=== PATIENT | female | born 1960 | race Caucasian/White ===

== ENCOUNTER 2022-09-03 14:36 | Outpatient (CLI) | payer MEDICAID, SELFPAY ==
[2022-09-03 10:17] LABS: Albumin* 4.2 g/dL (3.3-5.0); Chloride* 102 mmol/L (96-114); Sodium* 139 mmol/L (135-149)
[2022-09-03 10:18] LABS: Potassium* 4.3 mmol/L (3.6-5.1)
[2022-09-03 10:20] LABS: Cholesterol* 246 mg/dL (90-199)
[2022-09-03 11:03] LABS: Alanine Aminotransferase* 23 U/L (4-35); Alkaline Phosphatase* 69 U/L (40-150); Aspartate Amino Transferase* 32 U/L (12-35); Bilirubin Total* 0.6 mg/dL (0.1-1.5); Blood Urea Nitrogen* 19 mg/dL (7-30); Calcium* 9.3 mg/dL (8.4-10.6); Carbon Dioxide* 27 mmol/L (20-32); Creatinine* 0.7 mg/dL (0.5-1.5); Estimated Glomerular Filt Rate 97 ml/min; Glucose* 70 mg/dL (60-115); HDL Cholesterol* 77 mg/dL (>=50); LDL Cholesterol Calculated 146 mg/dL (<100); Total Protein* 7.2 g/dL (6.0-8.3); Triglycerides* 117 mg/dL (40-149)
== END 2022-09-03 14:37 | disposition home or self-care (01) ==
PROVIDERS: PCP Family Medicine; Visit Provider Family Medicine
DX: Z01.419 Encounter for gynecological examination (general) (routine) without abnormal findings (principal); E78.5 Hyperlipidemia, unspecified; F41.9 Anxiety disorder, unspecified
CPT/HCPCS: 80053; 80061

== ENCOUNTER 2022-12-01 10:02 | Outpatient (CLI) | payer MEDICAID, SELFPAY ==
--- NOTE | 2022-12-01 10:15 | CRLHL7_ITS ---
For Patients: As a result of the Century Cures Act, medical imaging exams and procedure reports are released immediately into your electronic medical record. You may view this report before your referring provider. If you have questions, please contact your health care provider. BILATERAL SCREENING MAMMOGRAM WITH COMPUTER-AIDED DETECTION TECHNIQUE: CC and MLO views were obtained. These mammographic images have been obtained using full-field digital technique. These mammographic images were interpreted with the benefit of computer-aided detection. COMPARISON FILM: 12/02/21, 09/05/20, 07/29/19. FINDINGS: The breasts are heterogeneously dense, which may obscure small masses IMPRESSION: There is no radiographic evidence for malignancy. ASSESSMENT: BI-RADS Category 1: Negative RECOMMENDATION: Routine screening mammogram in 1 year. A lay language report of this examination will be provided to the patient. Amandeep Palacios M.D. Diagnostic Radiologist [email or web address] SUSU/Dictated by: Amandeep Palacios MD @ 12/02/2022 9:24:00 AM (Electronically Signed)
== END 2022-12-01 10:03 | disposition home or self-care (01) ==
PROVIDERS: PCP Family Medicine; Visit Provider Family Medicine
DX: Z12.31 Encounter for screening mammogram for malignant neoplasm of breast (principal); R92.2 Inconclusive mammogram
CPT/HCPCS: 77067

== ENCOUNTER 2023-12-07 08:10 | Outpatient (CLI) | payer MEDICARE, SELFPAY ==
--- NOTE | 2023-12-07 08:15 | CRLHL7_ITS ---
For Patients: As a result of the Century Cures Act, medical imaging exams and procedure reports are released immediately into your electronic medical record. You may view this report before your referring provider. If you have questions, please contact your health care provider. BILATERAL SCREENING MAMMOGRAM WITH COMPUTER-AIDED DETECTION AND TOMOSYNTHESIS TECHNIQUE: CC and MLO views were obtained. These mammographic images have been obtained using full-field digital technique. These mammographic images were interpreted with the benefit of computer-aided detection. Breast Tomosynthesis was used in this interpretation. COMPARISON FILM: 12/01/22, 12/02/21, 09/05/20. FINDINGS: The breasts are heterogeneously dense, which may obscure small masses IMPRESSION: There is no radiographic evidence for malignancy. ASSESSMENT: BI-RADS Category 1: Negative RECOMMENDATION: Routine screening mammogram in 1 year. A lay language report of this examination will be provided to the patient. Amandeep Palacios M.D. Diagnostic Radiologist [email or web address] SUSU/Dictated by: Amandeep Palacios MD @ 12/08/2023 9:57:00 AM (Electronically Signed)
--- OUTSIDE RECORDS SUMMARY | 2023-12-07 08:15 | XMS_ITS | Encounter Summary ---
Author Name Unknown Organization [facility] Address [address] [place] [address] Care Team Providers Care Commercial Census Taker Name Role Phone Unavailable Primary Care Provider Unavailabl e Reason for Visit * Reason Comments Office Visit: Converted Data Conversion Encounter Details Date Type Department Care Team (Late st Contact Info) Description 05/28/2021 Dental Interim Note [address] [address] [facility] Social History Tobacco Use Types Packs/Day Years Used Date Smoking Tobacco: Never Assessed Social Connections Answer Date Recorded Social Connections and Isolation 0 06/01/2021 Financial Resource Strain Answer Date R ecorded Financial Resource Strain 0 2020 Stress Answer Date Recorded Stress 0 06/01/2021 Physical Activity Answer Date Recorded Physical Activity 0 06/01/2021 Food Insecurity Answer Date Recorded Food 0 06/01/2021 Transportation Needs Answer Date Record ed Transportation 0 06/01/2021 Housing Stability Answer Date Recorded Housing 0 06/01/2021 Safety and Environment Answer Date Justus rded Safety 0 06/01/2021 Utilities Answer Date Recorded Utilities 0 06/01/2021 Employment Answer Date Recorded Employment 0 06/01/2021 Sex and Gender Information Value Date Recorded Sex Assigned at Not on file Gender Identity Female 05/25/2018 6:02 AM PDT Sexual Orientation Straight 05/25/2018 6: 02 AM PDT documented as of this encounter Plan of Treatment Not on file documented as of this encounter Visit Diagnoses Not on filedocumented in this encounter
--- OUTSIDE RECORDS SUMMARY | 2023-12-07 08:15 | XMS_ITS | Clinical Summary ---
Author Name Unknown Organization [facility] Address [place], [place] [address] Care Team Providers Care Steel Wool Machine Operator Name Role Phone Marj Joe DO Primary Care Provider Allergies Active Allergy Reactions Criticality Noted Date Comments Cat Dander Itching 11/20/2021 Ciprofloxacin Dyspnea,Rash High 07/08/2019 Dog Dander Itching 11/20/2021 Mold Itching 11/20/2021 Sulfa (Sulfonamide Antibiotics) Rash 04/2019 Medications Medication Sig Dispensed Refills Start Date End Date Status Iron 18 mg tablet Take by mouth. 0 Act elizabeth escitalopram oxalate (LEXAPRO) 10 mg tabletIndications:Gen eralized anxiety disorder TAKE ONE TABLET BY MOUTH DAILY 90 Tablet 4 09/29/2023 Active Active Problems Problem Noted Date Diagnosed Date Sebaceous cyst 12/02/2010 Venous insufficiency of leg 11/05/2010 Lipoma 11/05/2010 Encounters Date Type Department Care Team Description 10/09/2023 2:10 PM CHIEF OPERATIONS OFFICER Office Visit [facility] [address] [place] [address] Sir Joei Emiliana, Anxiety (Discuss Lexapro/anxiety - stable for 6 years ); Sleep Problem (Pt reports waking up 2-4am and has trouble falling back asleep) 10/09/2023 Travel 10/02/2023 Telephone [facility] [address] [place] [address] Marj Joe DO Results (lab) 09/29/2023 7:40 AM CHIEF OPERATIONS OFFICER Office [facility] [address] [facility] [address] Tatynaa Marj Emiliana, DO Medicare WELCOME Visit (63 year old female); Back Pain (R mid pain - not sure if this is internal - worse in the morning, present when taking deep breath); Depression (Pt struggling with depression/anxiety) 09/29/2023 Orders Only [facility] Scanner 1 scan: (1-Ord) INCOMING RECORDS-[facility], 09/29/2023 09/29/2023 Travel 09/25/2023 Refill [facility] [address] [place] [address] Tatyana Marj Emiliana, DO Refill Request (Escitalopram Oxalate) from Last 3 Months Immunizations Name Administration Dates Next Due COVID-19 Vaccine Spikevax (M oderna 50mcg/0.5mL) 12YO+ [id number] Formula PF 09/29/2023 COVID-19 vaccine (Moderna 100mcg/0.5mL) PF, MDV 03/14/2022,09/15/2021,02/12/2021, 021 Hepatitis A (Adult) 11/17/2001 Influenza, IIV4 08/26/2021 Td (Age >=7 Years) 11/17/2001 Tdap 02/10/2013,10/27/2011 Zoster (Shingrix-RZV, recombinant) 05/20/2021, Family History Medical History Relation Name Comments Other Father suicide at 45 y rs old Psychiatric illness Father depressi on/anxiety Cancer Mother meningiomal can cer Cancer-breast Mother Psychiatric illness Mother depressi on/anxiety Anxiety disorder Sister Cancer-colon No Family History Cancer-ovarian No Family History Coronary artery disease No Family History Relation Name Status Comments Father (Age 45 yrs old) russell clarade Mother (Age 79 yrs old) me ningiomal cancer Sister Social History Tobacco Use Types Packs/Day Years Used Date Smoking Tobacco: Never Passive Smoke Exposure: Never Smokeless Tobacco: Never Tobacco Cessation:Counseling Given: Not Answered Alcohol Use Standard Drinks/Week Comments Never 0 (1 standard drink = 0.6 oz pur e alcohol) Social Connections Answer Date Recorded Frequency of Communication with Friends and Fami ly 0 08/24/2023 Financial Resource Strain Answer Date R ecorded Difficulty of Paying Living Expenses 3 08/24/2023 Difficulty of Paying Living Expenses Not on file 08/24/2023 Food Insecurity Answer Date Recorded Worried About Running Out of Food in the Last Ye ar 1 08/24/2023 Transportation Needs Answer Date Record ed Lack of Transportation (Medical) 1 08/24/2023 Housing Stability Answer Date Recorded Unable to Pay for Housing in the Last Year 1 08/24/2023 Sex and Gender Information Value Date Recorded Sex Assigned at Not on file Gender Identity Not on file Sexual Orientation Not on file Obstetrics History Last Filed Vital Signs Vital Sign Reading Time Taken Comments Blood Pressure 122/85 10/09/2023 2:12 PM CHIEF OPERATIONS OFFICER Pulse 56 10/09/2023 2:12 PM CHIEF OPERATIONS OFFICER Temperature 36.8 ??C (98.3 ??F) 08/24/2023 2:31 PM CD T Respiratory Rate - - Oxygen Saturation 99% 10/09/2023 2:12 PM CHIEF OPERATIONS OFFICER Inhaled Oxygen Concentration - - Weight 69.4 kg (153 lb) 10/09/2023 2:12 PM CHIEF OPERATIONS OFFICER Height 166.4 cm (5' 5.51) 09/29/2023 7:45 AM CS T Body Mass Index 25.06 09/29/2023 7:45 AM CHIEF OPERATIONS OFFICER Plan of Treatment Health Maintenance Due Date Last Done Comments Depression screening for age 12+ 1970 Tetanus booster 02/10/2023 02/10/2013, 10/03, 11/17/2001 DEXA/DXA scan for age 65+ 03/20/20232020 (Completed outside of [facility]) Pneumococcal series for age 65+ (1 of 1 - PCV) 2023 Influenza for age 65+ 07/03/2023 08/26/2021 Mammogram for age 45-75 12/01/2023 12/01/19, 12/01/2022 (Completed outside of [facility]), 12/02/2021 (Verified in Care Everywhere or Patient Record), Additional history exists Fecal testing sDNA-FIT ([place] guard) for age 45-75 08/27/2024 08/27/2021 (Verified in Care Everywhere or Patient Record) Medicare Wellness for age 65+ 09/28/2024 09/29/2023 BMI (ht and wt on same day) for age 18+ 09/29/2024 09/29/2023 Lipids for age 45-75 09/29/2028 09/29/2023 Pap test for age 21-65 09/29/2028 09/29/2023, 2022 Tdap Completed 02/10/2013, 10/27/2011 Zoster (shingles) series for age 50+ Completed 05/20/2021, 03/07/2021 COVID-19 vaccine series Completed 09/29/20, 03/14/2022, 09/15/2021, Additional history exists HIV for age 15-65 Completed 09/29/2023 Hepatitis C screening for ag e 18-79 Completed 09/29/2023 Procedures Procedure Name Priority Date/Time Associated Diagnosis Comments LIPID PANEL W REFLEX MEASURED LDL Routine 09/29/2023 9:12 AM CHIEF OPERATIONS OFFICER Screening for lipid disorders ANTI HCV Routine 09/29/2023 9:12 AM CHIEF OPERATIONS OFFICER Need for hepatitis C screening test ANTI HIV 1/2 Routine 09/29/2023 9:12 AM CHIEF OPERATIONS OFFICER Screening for HIV (human immunodeficiency virus) RIG BUILDER THIN PREP PAP SCREEN IMAGED Routine 09/29/2023 8:46 AM CHIEF OPERATIONS OFFICER Screening for cervical cancer HPV THIN PREP Routine 09/29/2023 8:46 AM CHIEF OPERATIONS OFFICER Screening for cervical cancer SCAN CORRESP-IMAGING 09/29/2023 12:00 AM CHIEF OPERATIONS OFFICER from Last 3 Months Results * (ABNORMAL) LIPID PANEL W REFLEX MEASURED LDL [[id number]] (09/29/2023 9:12 AM CHIEF OPERATIONS OFFICER) CHOLESTEROL,TOTAL 296(H) 100 - 199 mg/dL 09/29/2023 4:27 PM CHIEF OPERATIONS OFFICER [facility] Comment: Cholesterol, Total Reference Ranges Desirable <200 mg/dL Borderline 200-239 mg/dL High >=240 mg/dL TRIGLYCERIDES 78 <150 mg/dL 09/29/2023 4:27 PM CHIEF OPERATIONS OFFICER [facility] HDL CHOLESTEROL 84 >40 mg/dL 4:27 PM CHIEF OPERATIONS OFFICER [facility] NON-HDL CHOLESTEROL 212(H) <145 mg/dl 09/29/2023 4:27 PM CHIEF OPERATIONS OFFICER [facility] CHOL/HDL RATIO 3.52 <4.50 09/29/2023 4:27 PM CHIEF OPERATIONS OFFICER [facility] LDL CHOLESTEROL 196(H) <=130 mg/dL 09/29/2023 4:27 PM CHIEF OPERATIONS OFFICER [facility] VLDL CHOLESTEROL 16 <=30 mg/dL 09/29/2023 4:27 PM CHIEF OPERATIONS OFFICER [facility] PROVIDER ORDERED STATUS RANDOM 09/29/2023 4:27 PM CHIEF OPERATIONS OFFICER [facility] Blood BLOOD SPECIMEN / Unknown Venipuncture / Unknown 09/29/2023 9:12 AM CHIEF OPERATIONS OFFICER 09/29/2023 9:13 AM CHIEF OPERATIONS OFFICER Marj Brain [employer] Tatyana FLANAGAN CHEMISTRY Performing Organization Address [facility] Co de Phone Number [facility] [address] [place] [address], * ANTI HCV (09/29/2023 9:12 AM CHIEF OPERATIONS OFFICER) HEPATITIS C ANTIBODY Non-Reacti ve Non-React elizabeth 09/29/2023 4:20 PM CHIEF OPERATIONS OFFICER [facility] Comment:Please note, per www .CDC.gov: If a patient is known to be at high risk of HCV infection, or is symptomatic, and the physician's suspicion of HCV infection is high, HCV RNA testing is often employed and is of diagnostic value, even after an initial negative anti-HCV test result. Blood BLOOD SPECIMEN / Unknown Venipuncture / Unknown 09/29/2023 9:12 AM CHIEF OPERATIONS OFFICER 09/29/2023 9:13 AM CHIEF OPERATIONS OFFICER Marj Brain [employer] Tatyana FLANAGAN SEND OUTS Performing Organization Address City/[facility]/ZIP Co de Phone Number [facility] [address] [place] [address], * ANTI HIV 1/2 [30167.0] (09/29/2023 9:12 AM CHIEF OPERATIONS OFFICER) [facility] HIV-1/HIV-2 SCREEN Non-Reacti ve Non-Reacti ve 09/29/2023 4:16 PM CHIEF OPERATIONS OFFICER [facility] Comment:HIV-1 p24 and HIV-1/ HIV-2 Ab Not Detected. Blood BLOOD SPECIMEN / Unknown Venipuncture / Unknown 09/29/2023 9:12 AM CHIEF OPERATIONS OFFICER 09/29/2023 9:13 AM CHIEF OPERATIONS OFFICER Marj Joe DO SEND OUTS [facility] [address] [place] [address], * RIG BUILDER THIN PREP PAP SCREEN IMAGED [[id number]] (09/29/2023 8:46 AM CHIEF OPERATIONS OFFICER) [facility] Case Report Gynecologic Cytology Report ? Case: [id number] ? Authorizing Provider: ??Tatyana, Marj Hopson, DO ? Collected: ? 09/29/2023 0846 ? Ordering Location: ? [facility] ?? Received: ?09/29/2023 0919 ? Clinic ? First Screen: ?Chandrika Villaseñor ? Specimen: ?RIG BUILDER ThinPrep Vial Screening, Cervical ? 10/08/2023 7:58 AM [facility] [employer] INTERPRETATION/ RESULT NEGATIVE FOR INTRAEPITHELIAL LESION OR MALIGNANCY (NIL) (none) 10/08/2023 7:58 AM [facility] IMEN ADEQUACY Satisfactory for evaluation Endocervical component present 10/08/2023 7:58 AM [facility] HPV REQUEST HPV and PAP 10/08/2023 7:58 AM [facility] Date of LMP N/A 10/08/2023 7:58 AM [facility] Last Pap Date Unknown 10/08/2023 7:58 AM [facility] Last Pap Result First Pap/Unknown 7:58 AM [facility] Abnormal Pap or [place] Bx in last 5 years No 10/08/2023 7:58 AM CHIEF OPERATIONS OFFICER [facility] ENTRAL LAB[facility]ATORY Menstrual Status Postmenopausal 10/08/2023 7:58 AM [facility] EN[facility] E[place] Bx Done Today No 10/08/2023 7:58 AM [facility] Additional Information None given 10/08/2023 7:58 AM [facility] Comment: Cytology is screened at [facility] - [address], [place] [address] and [facility] - [address], [place] [address] [place] [place] [address] Interpreted at [address] [place] [address] Automated Review Successful 10/08/2023 7:58 AM CHIEF OPERATIONS OFFICER [facility] Comment:Specimen processed s uccessfully by automated adjuster and inspector device, ThinPrep Imaging System, [employer] ANCILLARY TESTING RIG BUILDER HPV Ordered, Please see separate report 10/08/2023 7:58 AM CHIEF OPERATIONS OFFICER [facility] Note The pap test is a screening technique, not a diagnostic procedure. It is used primarily to screen for squamous cancers and precursor lesions. Published studies have shown that it is subject to both false negative and false positive results. The pap test should not be used as the sole means to diagnose or exclude pre-malignant and malignant lesions. 10/08/2023 7:58 AM CHIEF OPERATIONS OFFICER [facility] ENTRAR LAB[facility] Other (Cervical) Non-Blood / Unknown 09/29/2023 8:46 AM CHIEF OPERATIONS OFFICER 09/29/2023 9:19 AM CHIEF OPERATIONS OFFICER Marj Joe DO PATHOLOGY/CYTOLOGY [facility] [address] [place] [address], * HPV HIGH RISK (09/29/2023 8:46 AM CHIEF OPERATIONS OFFICER) TYPE 16 Negative Negative 10/05/2023 11:14 AM CHIEF OPERATIONS OFFICER [facility] TR[facility] TYPE 18 Negative Negative 10/05/2023 11:14 AM CHIEF OPERATIONS OFFICER [facility] TRA [facility] OTHER HIGH RISK TYPES Negative Negative 10/05/2023 11:14 AM CHIEF OPERATIONS OFFICER [facility] Other (Cervical) Non-Blood / Unknown 09/29/2023 8:46 AM CHIEF OPERATIONS OFFICER 09/29/2023 4:50 PM CHIEF OPERATIONS OFFICER Narrative [facility] - 10/05/2023 11:14 AM CHIEF OPERATIONS OFFICER HPV types 16, 18, 31, 33, 35, 39, 45, 51, 52, 56, 58, 59, 66 and 68 DNA were undetectable or below the pre-set threshold. Methodology: Iliana Anthony 4800 HPV Test Marj Joe DO MICROBIOLOGY [facility] [address] [place] [address], * SCAN CORRESP-IMAGING (09/29/2023 12:00 AM CHIEF OPERATIONS OFFICER) Anatomical Region Laterality Modality Other Scanner OTHER from Last 3 Months Advance Directives Documents on File Type Date Recorded Patient Animal Attendants And Trainers Expl anation Healthcare Directive 11/03/2023 2:33 PM Care Teams Steel Wool Machine Operator Relationship Specialty Start Date End Date [place] [address] PCP - General Family Practice 09/29/23
--- OUTSIDE RECORDS SUMMARY | 2023-12-07 08:15 | XMS_ITS | Encounter Summary ---
Author Name Unknown Organization [facility] Address [address] [place] [address] Care Team Providers Care Manager Of Maintenance Name Role Phone Unavailable Primary Care Provider Unavailabl e Reason for Visit * Reason Comments Dental Hygiene/ Preventive PT present fo r hygiene. No pain or concerns. Encounter Details Date Type Department Care Team (Late st Contact Info) Description 02/13/2023 10:00 AM PDT Office Visit [address] [address] Yeni Boyce ADT Encounter for dental examination and cleaning without abnormal findings (Primary Dx) Social History Tobacco Use Types Packs/Day Years Used Date Smoking Tobacco: Never Smokeless Tobacco: Never Social Connections Answer Date Recorded Social Connections [...] Orientation Straight 05/25/2018 6: 02 AM PDT COVID-19 Exposure Response Date Recorded In the last 10 days, have yo u been in contact with someone who was confirmed or suspected to have Coronavirus/COVID-19? No / Unsure 02/13/2023 9:58 AM CDT documented as of this encounter Last Filed Vital Signs Vital Sign Reading Time Taken Comments Blood Pressure 100/73 02/13/2023 10:06 AM CDT Pulse 70 02/13/2023 10:06 AM CDT Temperature - - Respiratory Rate - - Oxygen Saturation - - Inhaled Oxygen Concentration - - Weight - - Height - - Body Mass Index - - documented in this encounter Progress Notes * DEEPTI Peoples - 02/13/2023 11:16 AM CDT Prophy & Periodic Exam - Adult SUBJECTIVE: Fara Shah, 62 year old female, presents alone for Recall exam. Assessment Consultant: No Chief Complaint Patient presents with Dental Hygiene/ Preventive PT present for hygiene. No pain or concerns. OBJECTIVE: RMHx: Yes Vitals: Vitals: 02/13/23 1006 BP: 100/73 Pulse: 70 ASSESSMENT: EOE/IOE/Oral Cancer Screen: WNL OH: Fair Fluoride exposure: toothpaste Home Care: Toothbrush 1 x per day, Floss 1 x per day Plaque: Localized Slight Calculus: Localized Slight Bone Loss: Localized Moderate PSR: Yes Periodontal Screening: Type II OHI & Nutrition counseling provided, discussed: Increase brushing to twice a day TMJ: WNL Caries Risk Assessment: 02/13/2023 10:05 AM Overall assessment of dental caries risk: Moderate Dx: Z01.20 Encounter for dental examination and cleaning without abnormal findings (primary encounter diagnosis) Dx Details (Clinical Decision Making): Recommended 6 MRC. PLAN: Informed Consent/PARQ (Procedure, Alternatives, Risks, Questions): Discussed exam findings and treatment needs, questions answered. Patient confirms informed consent using PARQ, verbalizes understanding of exam findings and treatment plan. Dental procedures in this visit D0120 - PERIODIC ORAL EVALUATION - ESTABLISHED PATIENT Full (Completed) Service provider: DEEPTI Peoples Billing provider: DEEPTI Peoples D0274 - BITEWINGS - 4 RADIOGRAPHIC IMAGES (Completed) Service provider: DEEPTI Peoples Billing provider: DEEPTI Peoples D0220 - INTRAORAL - PERIAPICAL FIRST RADIOGRAPHIC IMAGE (Completed) Service provider: DEEPTI Peoples Billing provider: DEEPTI Peoples D1110 - PROPHYLAXIS - ADULT Full (Completed) Service provider: DEEPTI Peoples Billing provider: DEEPTI Peoples D1206 - TOPICAL APPLICATION OF FLUORIDE VARNISH Full (Completed) Service provider: DEEPTI Peoples Billing provider: DEEPTI Peoples D1330 - ORAL HYGIENE INSTRUCTIONS Full (Completed) Service provider: DEEPTI Peoples Billing provider: DEEPTI Peoples D1310 - NUTRITIONAL COUNSELING FOR CONTROL OF DENTAL DISEASE Full (Completed) Service provider: DEEPTI Peoples Billing provider: DEEPTI Peoples D0602 - CARIES RISK ASSESSMENT AND DOCUMENTATION, WITH A FINDING OF MODERATE RISK (Completed) Service provider: DEEPTI Peoples Billing provider: DEEPTI Peoples Referrals: No orders of the defined types were placed in this encounter. Rx: No orders of the defined types were placed in this encounter. Behavior: Excellent DA: Bran, student DEEPTI Peoples [id number] FIELD MARKETING ASSOCIATE: Dr. Cruz, DDS [id number] NV: Recall - 6 months documented in this encounter Plan of Treatment Not on file documented as of this encounter Procedures Procedure Name Priority Date/Time Associated Diagnosis Comments CARIES RISK ASSESSMENT & DOC FINDING MOD RISK Routine 02/13/2023 10:00 AM CDT Encounter for dental examination and cleaning without abnormal findings Full TOPICAL APPLICATION OF FLUORIDE VARNISH Routine 02/13/2023 10:00 AM CDT Encounter for dental examination and cleaning without abnormal findings Full ORAL HYGIENE INSTRUCTIONS Routine 02/13/2023 10:00 AM CDT Encounter for dental examination and cleaning without abnormal findings Full NUTRITIONAL COUNSELING CONTROL OF DENTAL DISEASE Routine 02/13/2023 10:00 AM CDT Encounter for dental examination and cleaning without abnormal findings Full PROPHYLAXIS - ADULT Routine 023 10:00 AM CDT Encounter for dental examination and cleaning without abnormal findings BITEWINGS - FOUR RADIOGRAPHIC IMAGES Routine 02/13/2023 10:00 AM CDT Encounter for dental examination and cleaning without abnormal findings INTRAORAL - PERIAPICAL FIRST RADIOGRAPHIC IMAGE Routine 02/13/2023 10:00 AM CDT Encounter for dental examination and cleaning without abnormal findings Full PERIODIC ORAL EVALUATION ESTABLISHED PATIENT Routine 02/13/2023 10:00 AM CDT Encounter for dental examination and cleaning without abnormal findings documented in this encounter Visit Diagnoses Diagnosis Encounter for dental examination and cleaning without abnormal findings- Primary documented in this encounter
--- OUTSIDE RECORDS SUMMARY | 2023-12-07 08:15 | XMS_ITS | Encounter Summary ---
Author Name Unknown Organization [facility] Address [address] [place] [address] Care Team Providers Care Blueprint Machine Operator Name Role Phone Unavailable Primary Care Provider Unavailabl e Encounter Details Date Type Department Care Team (Latest Contact Info) Description 02/13/2023 Travel Social History Tobacco Use Types Packs/Day Years [...] AM CDT documented as of this encounter Plan of Treatment Not on file documented as of this encounter Visit Diagnoses Not on filedocumented in this encounter
--- OUTSIDE RECORDS SUMMARY | 2023-12-07 08:15 | XMS_ITS | Clinical Summary ---
Author Name Unknown Organization [facility] Address [address] [place] [address] Care Team Providers Care Grip Wrapper Name Role Phone Unavailable Primary Care Provider Unavailabl e Source Comments PLEASE NOTE, if this patient is a minor, it may be UNLAWFUL to discuss sensitive information that is contained in these records (such as FAMILY PLANNING, MENTAL HEALTH or SUBSTANCE ABUSE) with the minor patient's parent or other person without the patient's specific authorization.[facility] Allergies Active Allergy Reactions Criticality Noted Date Comments Cat Dander 11/20/2021 Ciprofloxacin SOB,Rash High 07/08/2019 Dogs 11/20/2021 Mold Itching 11/20/2021 Sulfa (Sulfonamide Antibiotics) Rash High 04/2019 Medications Medication Sig Dispensed Refills Start Date End Date Status escitalopram oxalate (LEXAPRO) 10 mg tablet Take 10 mg by mouth daily 0 05/28/2021 Active escitalopram oxalate (LEXAPRO) 10 mg tablet Take 10 mg by mouth once daily 0 09/03/2021 Active Active Problems Problem Noted Date Diagnosed Date Hyperlipidemia with target LDL less than 160 02/13/2023 Overview: Diagnosis updated by automated process. Provider to review and confirm. ACP (advance care planning) 12/11/201601/31 Overview: Advance Care Planning 12/11/2016: Receipt of ACP document: Received: Health Care Directive which was witnessed or notarized on 07-01-13. Document previously scanned on 10-06-16. Validation form completed and sent to be scanned. Code Status needs to be updated to reflect choices in most recent ACP document. Confirmed/documented designated decision maker(s). Added by Raven Gauthier RN Advance Care Planning Liaison with [facility] Restless legs syndrome (RLS) 04/23/2015 Anxiety 03/28/2014 02/13/2023 Overview: Phobia of bridges, and freeways. Sees counselor, declined meds March 28, 2014 Gluten free diet 03/28/2014 02/13/2023 Overview: adheres strictly, mostly vegetarian, no iron Varicose veins 03/28/2014 02/13/2023 Kidney stone 03/28/1996 02/13/2023 Resolved Problems Problem Noted Date Diagnosed Date Resolved Date UTI (urinary tract infection) 06/09/2019 02/13/2023 03/16/2023 Social History Tobacco Use Types Packs/Day Years [...] Orientation Straight 05/25/2018 6: 02 AM PDT Last Filed Vital Signs Vital Sign Reading Time Taken Comments Blood Pressure 100/73 02/13/2023 10:06 AM CDT Pulse 70 02/13/2023 10:06 AM CDT Temperature 36.1 ??C (97 ??F) 05/19/2022 10:11 AM CDT Respiratory Rate - - Oxygen Saturation - - Inhaled Oxygen Concentration - - Weight - - Height - - Body Mass Index - - Plan of Treatment Health Maintenance Due Date Last Done Comments Dental FMX/Pano 1958 Diabetes Screening 1960 Hepatitis C Screening 1958 Lipid Screening [address] Colonography 2003 Colonoscopy 2003 FIT/gFOBT 2003 Flexible Sigmoidoscopy 2003 Breast Cancer Screening (Mammogram) 2008 Imm-DTaP/Tdap/Td (3 - Td or Tdap) 02/10/2023 013, 10/27/2011 Bone Density Screening 2023 Falls Prevention 2023 Imm-Pneumococcal 65+ (1 - PCV) 2023 Dmi-KLTSG-25 (3 - 2022-24 season) 2023 021, 01/09/2021 Imm-Influenza (#1) 2023 Alcohol and Drug Screen 11/02/2023 Depression Annual Screen 11/02/2023 Hypertension Screening (#1) 02/13/2024 Dental Examination 02/14/2024 02/13/2023, 05/19/2022 Dental Perio Charting 02/14/2024 02/13/2023 Tobacco Screening 02/14/2024 02/13/2023 Dental Hygiene (Prophy) 02/15/2024 02/13/2023, 05/19 Colorectal Cancer Screening 08/27/2024 Fecal DNA 08/27/2024 08/27/2021, 08/03, 08/10/2018 Imm-Zoster, Recombinant Completed 05/20/2021, 03/07 Insurance Payer Benefit Plan / Group Subscriber ID Effective Dates Phone Address Type [employer] [place] [employer] [place] [facility] [place] / [place] / [place] / CHRIS / LL / XX [id number] 2020-Cliff oquendo [address] [place] [address] Indemnity
== END 2023-12-07 08:11 | disposition home or self-care (01) ==
LOC: MAMMO 08:13
PROVIDERS: PCP Family Medicine; Visit Provider Family Medicine
DX: Z12.31 Encounter for screening mammogram for malignant neoplasm of breast (principal); R92.2 Inconclusive mammogram
CPT/HCPCS: 77063; 77067